=== PATIENT | female | born 1995 ===

== ENCOUNTER 2017-07-09 09:18 | Inpatient (IN) | payer MEDICAID, SELFPAY ==
[2017-07-09] MEDS ORDERED: Lactated Ringer's 1,000 ML IV SCH (10:00)
[2017-07-09 10:40] LABS: BASO % 0.4 % (0.0-2.0); EOS # 0.1 K/uL (0.0-0.7); EOS % 1.1 % (0.0-4.0); HEMATOCRIT 35.4 % (34.0-47.0); LYMPH # 1.5 K/uL (1.0-4.3); LYMPH % 20.2 % (20.0-40.0); MEAN CELL VOLUME 91.2 fL (81.0-99.0); MEAN CORPUSCULAR HEMOGLOBIN 31.3 pg (27.0-31.0); MEAN CORPUSCULAR HGB CONC 34.3 g/dL (33.0-37.0); MEAN PLATELET VOLUME 8.7 fL (7.2-11.7); MONO # 0.5 K/uL (0.0-0.8); MONO % 7.6 % (0.0-10.0); NRBC % 0.1 % (0.0-2.0); RED CELL DISTRIBUTION WIDTH 13.7 % (11.5-14.5); WHITE BLOOD COUNT 7.3 K/uL (4.8-10.8)
[2017-07-09 10:50] LABS: RBC URINE 18 /hpf (0-3); URINE BACTERIA RARE (<OCC); URINE BILIRUBIN NEGATIVE (NEGATIVE); URINE BLOOD 3+ (NEGATIVE); URINE COLOR Yellow (YELLOW); URINE GLUCOSE (UA) NORMAL (Normal); URINE KETONE NEGATIVE (NEGATIVE); URINE LEUKOCYTE ESTERASE 3+ Leu/uL (Negative); URINE PROTEIN NEGATIVE (NEGATIVE); URINE UROBILINOGEN NORMAL mg/dL (0.2-1.0); WBC URINE 36 /hpf (0-5)
--- NOTE | 2017-07-09 10:54 | OBADHP ---
Datetime: 07/09/2017 10:49 Admit Comment, IP Provider: 22 y/o @ 40.2 wks GA c/o of vaignal spotting tis morning with ctx p ain this morning eery 5 min 04/18. pt denie any lof, +FM. 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 PMY: deies PSH: deies FHX: non contriubory MEDS: PNV SHX: negative x 3 A/P 22 y/o @ 40.2 wks GA post edc , in active labor -admit to l+D -pain manamgnet prn -cont toco and efm -cont current mangment -npo, ivf -admission labs Pelvic Type - PN: Adequate Extremities - PN: Normal Abdomen - PN: Normal Back - PN: Normal Breast - PN: Normal Lungs - PN: Normal Heart - PN: Normal Thyroid - PN: Not Done Neurologic - PN: Normal HEENT - PN: Normal General - PN: Normal Weight - Estimated: 3500 Presentation-Admit: Vertex FHR - Baseline A Provider: 130 Membranes, Provider: Intact Contraction Comments Provider: q 3 min Gestation - Est Wks by US: 40.2 IP Chief Complaint: Uterine contractions NICHD Variability Prov Fetus A: Moderate 6-25bpm NICHD Accel Fetus A IP Provider: 15X15 FHR Category Provider Fetus A: Category I NICHD Decel Fetus A IP Provider: None Dilatation, Provider: 4 Effacement, Provider: 60 Station, Provider: -2 Genitourinary Exam: Normal DTRs - PN: Normal EGA AdmitDate IP: 40.2 IP Adm Impression: Term, intrauterine IP Admit Plan: Admit to unit
[2017-07-09 10:56] LABS: CHLORIDE 108 mmol/L (98-107); SODIUM 138 mmol/L (132-148)
[2017-07-09 10:57] LABS: POTASSIUM 3.9 mmol/L (3.6-5.2)
[2017-07-09 10:59] LABS: ALKALINE PHOSPHATASE 170 U/L (38-126); ALT/SGPT 24 U/L (9-52); AST/SGOT 18 U/L (14-36); BILIRUBIN,TOTAL 0.8 mg/dL (0.2-1.3); BLOOD UREA NITROGEN 7 mg/dL (7-17); CARBON DIOXIDE 19 mmol/L (22-30); GFR AFRICAN-AMERICAN > 60; TOTAL PROTEIN 6.5 g/dL (6.3-8.3)
[2017-07-09 11:00] LABS: CALCIUM 9.2 mg/dl (8.6-10.4); GLUCOSE,RANDOM 78 mg/dL (65-105)
--- NOTE | 2017-07-09 12:14 | OBPN ---
Datetime: 07/09/2017 12:00 IP Progress Impression: Normal progression of labor IP Informed Consent Obtain: Vaginal Delivery IP Progress Plan: Continue present management Membranes, Provider: Intact Contraction Comments Provider: 5-7 min FHR - Baseline A Provider: 135 Gestation - Est Wks by US: 40.2 IP Progress Note Comment: Pt seen and examiend for progression of labor. pt reports pian form ctx , denies lof, vb, +FM VSS VE: /-2 vtx itnact A/P @ 40.2 wks GA in active labor for augmenttion -pitoicn as per protocol -ocnt toco and efm NICHD Accel Fetus A IP Provider: 15X15 FHR Category Provider Fetus A: Category I NICHD Variability Prov Fetus A: Moderate 6-25bpm Dilatation, Provider: 4 Effacement, Provider: 70 Station, Provider: -2 NICHD Decel Fetus A IP Provider: None Datetime: 07/09/2017 10:49 Weight - Estimated: 3500 Presentation-Admit: Vertex
[2017-07-09] MEDS ORDERED: Oxytocin 30 UNIT 30 UNITS/500 ML BAG IV SCH ×3 (12:15→21:45)
[2017-07-09] MEDS ORDERED: Bupivacaine 0.125%/FentaNYL 200 ML EPI ONE (14:56)
--- NOTE | 2017-07-09 15:58 | OBPN ---
Datetime: 07/09/2017 15:54 IP Progress Impression: Normal progression of labor IP Informed Consent Obtain: Vaginal Delivery IP Procedures: Artificial ROM IP Progress Plan: Continue present management Membranes, Provider: Ruptured Amniotic Fluid Color, Provider: Bloody FHR - Baseline A Provider: 135 Gestation - Est Wks by US: 40.2 Presentation-Admit: Vertex IP Progress Note Comment: pt seen and examined f/o pain s/p epdurial. pt denies lof, vb, +FM VSS EF: cat I TOCO: q 2 min Pitocin 3mu/min A/P @ 40.2 wks GA , post edc, active labor -s/p AROM -continue pitoicn as per protcol -cont current management Vital Signs Provider: Reviewed; Within Normal Limits NICHD Accel Fetus A IP Provider: 15X15 FHR Category Provider Fetus A: Category I NICHD Variability Prov Fetus A: Moderate 6-25bpm Dilatation, Provider: 5 Effacement, Provider: 70 Station, Provider: -2 NICHD Decel Fetus A IP Provider: None
--- NOTE | 2017-07-09 19:54 | OBPN ---
Datetime: 07/09/2017 19:46 IP Progress Impression: Normal progression of labor IP Progress Plan: Continue present management Membranes, Provider: Ruptured Gestation - Est Wks by US: 40.2 IP Progress Note Comment: pt seen and examiend wth temperature 101. pt reports pressure. VS see above EFM: Cat I TPCOL q 2 min A/P @ 40.2 wks GA in active labor with chorioamenitos -amp/ gent -cont curren tmanagnet -tyeonol -reechck 1 hour, sooner if indicated, strat pushign if fully dilated Vital Signs Provider: Reviewed Vital Signs Provider Details: Temp 101.2 Dilatation, Provider: 9 Effacement, Provider: 90 Station, Provider: 0
[2017-07-09] MEDS ORDERED: Gentamicin 80 mg/2mL Inj. ONE (20:01)
[2017-07-09] MEDS ORDERED: Oxycodone/Acetaminophen 5/325 mg Tab PO PRN ×2 (21:37)
--- NOTE | 2017-07-09 21:40 | OBPN ---
Datetime: 07/09/2017 21:35 IP Progress Impression: Normal progression of labor IP Informed Consent Obtain: Vaginal Delivery IP Procedures: Artificial ROM IP Progress Plan: Continue present management IP Progress Note Comment: pt seen and examien dc/o pressure, denies vb, +FM VE: 10/100/0 A/P @ 40.2 wks GA fully dilated -strt pushing -anticipate
--- NOTE | 2017-07-09 22:56 | OBDS ---
MATERNAL INFORMATION Provider Comments: pt wwas fully dilatd, atrumatic, spontaneous delivery of head, no nuchal cord not ed. ataumatic, spontaneous delivery of nateiror followed by posterir soulder followed by dleivye rof body. both oral and nasal passages of the baby were bulb suctioned. umbilical cord was clamped and cu t. Baby was handed to mother on abdomen with rn assistance. cord blood and cord gases collected and sent x 2. spontaneous delivery of intact placenta with membranes. fundus firm, lower uteirne segment boggy. bimanual massage. methergine IM x 1. loewr uteirne segment firm. second degree perineal lacea tioned noted and repaired with 2-0 and 3-0 chromic. good hemostasis. no complications. ebl 400 apgs 9,9 weight of 7lbs 13 ounces communications attendant presnet for delivery LABOR SUMMARY EDC: 07/07/2017 00:00 No. Babies in Womb: 1 Attempted: No Labor Anesthesia: Epidural LABOR INFORMATION Group B Beta Strep: Negative Steroids Given: None MEMBRANES Membranes Rupture Method: Artificial Rupture of Membranes: 07/09/2017 15:52 Length of Rupture (hrs): 6.08 Amniotic Fluid Color: Bloody Amniotic Fluid Amount: Moderate Amniotic Fluid Odor: Normal STAGES OF LABOR Stage 3 hrs: 0 Stage 3 min: 5 CSECTION DELIVERY CSection Incidence: N/A BABY A INFORMATION Delivery Date/Time: 07/09/2017 21:57 Method of Delivery: Vaginal Born in Route : No : N/A Forceps: N/A Vacuum Extraction: N/A Shoulder Dystocia : No SHOULDER DYSTOCIA BABY A Infant Delivery Date/Time: 07/09/2017 21:57 PRESENTATION/POSITION BABY A Presentation: Cephalic Cephalic Presentation: Vertex Vertex Position: Left Occipital Posterior Breech Presentation: N/A PLACENTA INFORMATION BABY A Placenta Delivery Time : 07/09/2017 22:02 Placenta Method of Delivery: Spontaneous Placenta Status: Delivered SCORES BABY A Heart Rate 1 min: >100 bpm Resp Effort 1 min: Good Cry Reflex Irritability 1 min: Cough or Sneeze or Pulls Away Muscle Tone 1 min: Active Motion Color 1 min: Body [place], Extremities Blue SCORE 1 MIN: 9 Heart Rate 5 min: >100 bpm Resp Effort 5 min: Good Cry Reflex Irritability 5 min: Cough or Sneeze or Pulls Away Muscle Tone 5 min: Active Motion Color 5 min: Body [place], Extremities Blue SCORE 5 MIN: 9 INFORMATION BABY A Gestational Age at Delivery: 40.2 Gestational Status: Term Infant Outcome : Liveborn Infant Condition : Stable Sex: Female IDENTIFICATION/MEDS BABY A ID Band Number: [id number] ID Band Location: Left Leg; Left Arm Sensor Applied: Yes Sensor Number: [id number] Sensor Location : Cord Clamp WEIGHT/LENGTH BABY A Infant Birthweight (gms): 3540 Weight (lb): 7 Infant Weight (oz): 13 Infant Length Inches: 20.00 Length cms: 50.8 CORD INFORMATION BABY A No. Cord Vessels: 3 Nuchal Cord : N/A Infant Suction: Mouth; Nose ASSESSMENT BABY A Complications: None Physical Findings at Delivery: Within Normal Limits Respirations: Appears Normal Care By: DR BUI Transferred To: [facility]
[2017-07-10 07:25] LABS: HEMATOCRIT 30.5 % (34.0-47.0); MEAN CELL VOLUME 91.4 fL (81.0-99.0); MEAN CORPUSCULAR HEMOGLOBIN 31.4 pg (27.0-31.0); MEAN CORPUSCULAR HGB CONC 34.4 g/dL (33.0-37.0); MEAN PLATELET VOLUME 8.8 fL (7.2-11.7); RED CELL DISTRIBUTION WIDTH 14.2 % (11.5-14.5)
[2017-07-10 07:29] LABS: WHITE BLOOD COUNT 14.3 K/uL (4.8-10.8)
--- NOTE | 2017-07-11 00:20 | OBPPN ---
Datetime: 07/10/2017 10:02 PP Pain Prov: Within normal limits PP Nausea Prov: Denies PP Flatus Prov: Yes PP BM Prov: No PP Breasts Prov: Normal PP Heart Prov: Normal PP Lungs Prov: Normal PP Abdomen/Uterus Prov: Normal PP Lochia Prov: Normal PP Vulva/Perineum Prov: Normal PP CVA Tenderness Prov: Normal PP Extremities Prov: Normal PP C/S Incision Prov: Not Applicable PP Progress Prov: Normal PP Comments Phys Exam Prov: Abdomen: Soft. (+) BS. Fundus firm, mobile, non tender, 1 FB below umbi licus. Mild lochia rubra All other systems reviewed and are negative PP Impression Prov: Normal progression PP Plan Prov: Continue present management PP Progress Note Prov: Patient received in room 453. Denies headaches, dizziness; excl usively. Ambulating and voiding without difficulty P.E.: as above. WD in NAD. Awake, alert, oriented to time, person and place. Pleasant and cooerat betty - PPD#1 H/H 10.5/30.5; Rh (+) Assessment: PPD#1, 22 y.o. P1, s/P ; currently on Amp/gent for chorioamnionitis. Currently afe brile; all other vital signs stable. Clinically stable. Plan: 1) continue present management 2) Anticipate discharge home 07/11/17 Vital Signs Provider PP: Reviewed
[2017-07-11 01:01] VITALS: O2SAT 98
[2017-07-11 08:13] VITALS: BP 100/67; PULSE 87; RESP 18; TEMP 98.1
--- NOTE | 2017-07-11 10:06 | OBPPN ---
Datetime: 07/11/2017 10:03 PP Pain Prov: Within normal limits PP Nausea Prov: Denies PP Flatus Prov: Yes PP BM Prov: Yes PP Breasts Prov: Normal PP Heart Prov: Normal PP Lungs Prov: Normal PP Abdomen/Uterus Prov: Normal PP Lochia Prov: Normal PP Vulva/Perineum Prov: Normal PP CVA Tenderness Prov: Normal PP Extremities Prov: Normal PP C/S Incision Prov: Not Applicable PP Progress Prov: Normal PP Impression Prov: Normal progression PP Plan Prov: Continue present management; Discharge PP Progress Note Prov: Pt seen and examined and reports pain is controlled with medication. Pt repor ts ambuating, voiding, passing flatus, no BM. Pt denies any fever, chills, nausea, vomiting, CP, SOB. lightheadness, dizzyness. Pt is breast and bottle feeding and denies any feelings of sadness or depr ession. Pt tolerating regular diet VSS PE: GEN: NAD, AAO x 3 BREAST: NT, Non engorged b/l RES: CTAB/l CVS: RRR, +S1/S2 ABD: soft, NT/ND, +BS. No guarding, no reboudn tenderness, no rigidity FUNDUS: Firm, below level of umbiliucs VE: Minimal lochia, non fouls smelling EXT: no calf tenderness, negative franko's sign A/P s/p PPD #2 doing wel, requestng discharge -d/ chome -rto 6 weeks Vital Signs Provider PP: Reviewed; Within Normal Limits
--- NOTE | 2017-07-11 10:06 | OBDCSUM ---
Datetime: 07/11/2017 10:04 Discharged to, Provider: Home Follow up at, Provider: clinic Disch Instr Activity: Normal activity Disch Instr Diet: Regular Discharge Instructions, Provider: Routine instructions given Discharge Diagnosis, Provider: Term Delivered Discharge Time: 07/11/2017 10:04 Follow up in weeks, Provider: 6 weeks Disch Referrals: None Contraception discussed, Prov: Yes Disch Activity Restrictions: No sexual activity; Nothing in vagina - Yonah, tampons, douche Discharge Comment, Provider: if fever, chills, nause, vomitig, cp, sob, britton jj, go to er Contraception after Delivery: Not Planning to Use
== END 2017-07-11 15:40 | disposition home or self-care (01) | DRG 373 ==
LOC: C.EROB 09:18 → C.4D 10:02 → C.4M 07-10 01:19
PROVIDERS: ADMIT Obstetrics & Gynecology; ATTEND Obstetrics & Gynecology
PROC: 10907ZC Drainage of Amniotic Fluid, Therapeutic from Products of Conception, Via Natural or Artificial Opening (ICD-10-PCS; principal; 2017-07-09)
PROC: 10E0XZZ Delivery of Products of Conception, External Approach (ICD-10-PCS; 2017-07-09)
PROC: 0KQM0ZZ Repair Perineum Muscle, Open Approach (ICD-10-PCS; 2017-07-09)
DX: O41.1210 Chorioamnionitis, first trimester, not applicable or unspecified (principal); O70.1 Second degree perineal laceration during delivery; Z37.0 Single live birth; Z3A.40 40 weeks gestation of pregnancy

== ENCOUNTER 2017-07-18 14:32 | Emergency (ER) | payer MEDICAID, OTHER ==
[2017-07-18 14:38] VITALS: RESP 16; O2SAT 99
--- NOTE | 2017-07-18 14:43 | C.PDOC ---
History Of Present Illness 07/18/2017 Keli Mcnamara is a 22 year old female, who presents to the emergency department complaining of a rash on her chest, left and right abdomen sides, and groin area since yesterday morning. Patient reports this is the first time this rash occurs and notes last she began to use a new laundry detergent. Patient denies using any new creams, or perfumes. Patient denies any fever, shortness of breath, chest pain, headache or other complaints. Patient also states she is currently breast-feeding her one week old baby. PMD: Dr. Alvarez Time Seen by Provider: 07/18/17 14:41 Chief Complaint (Nursing): Allergic Reaction History Per: Patient History/Exam Limitations: language barrier (telecommunications officer: Whit Grant) Onset/Duration Of Symptoms: Days (1 days) Current Symptoms Are (Timing): Still Present Possible Cause: Other (new detergent ) Associated Symptoms: Skin Rash, Itching Home/EMS Treatment: None Past Medical History Reviewed: Historical Data, Nursing Documentation, Vital Signs Vital Signs: Last Vital Signs Temp 98.2 F 07/18/17 14:35 Pulse 76 07/18/17 14:35 Resp 16 07/18/17 14:35 BP 117/76 07/18/17 14:35 Pulse Ox 99 07/18/17 15:06 - Medical History PMH: Denies: Depression, Diabetes, HTN - [facility] Procedures DELIVERY OF PRODUCTS OF CONCEPTION, EXTERNAL APPROACH (07/09/17) DRAINAGE OF AMNIOTIC FL, THERAP FROM POC, VIA OPENING (07/09/17) REPAIR PERINEUM MUSCLE, OPEN APPROACH (07/09/17) - Social History Hx Alcohol Use: No Hx Substance Use: No - Immunization History Hx Tetanus Toxoid Vaccination: Yes Hx Influenza Vaccination: No Hx Pneumococcal Vaccination: No Review Of Systems Constitutional: Negative for: Fever Cardiovascular: Negative for: Chest Pain Respiratory: Negative for: Shortness of Breath Skin: Positive for: Rash (chest, abdomen, and groin area) Neurological: Negative for: Headache, Dizziness Physical Exam - Physical Exam Appears: Well, Non-toxic, No Acute Distress Skin: Normal Color, Warm, Dry, Rash (maculopapular rash to chest, abdomen, axilla, and groin area) Head: Atraumatic, Normacephalic Eye(s): bilateral: Normal Inspection, PERRL, EOMI Nose: Normal Throat: Normal Neck: Normal Cardiovascular: Rhythm Regular Respiratory: Normal Breath Sounds Gastrointestinal/Abdominal: Normal Exam Back: Normal Inspection Extremity: Normal ROM Neurological/Psych: Oriented x3, Normal Speech, Normal Motor, Normal Sensation Gait: Steady ED Course And Treatment O2 Sat by Pulse Oximetry: 99 (room air) Pulse Ox Interpretation: Normal Medical Decision Making Medical Decision Makin07/18/2017 Impression: 22 year old with maculopapular rash on chest, abdomen, axilla, and groin area Plan: -- Pepcid -- Prednisone -- Reassess and disposition Re-evaluation: Discussed results and plan with patient. Patient understands results and is agreeable with plan. All questions answered. Patient is stable for discharge and was prescribed with Prednisone and Zantac. Disposition - Disposition Referrals: She Dodge, ACNP-BC [Advanced Practice Nurse] - Disposition: HOME/ ROUTINE Disposition Time: 15:02 Additional Instructions: Anders, thank you for letting us take care of you today. Return to the ER if your symptoms worsen, or if any problems. Follow up with Dr. Alvarez in 2 or 3 days for a re-evaluation. Take the medication listed below as prescribed. It is generally considered safe if breast feeding. Prescriptions: Prednisone [Deltasone] 1 tab PO TID #15 tablet Ranitidine HCl [Zantac] 1 tab PO BID #14 tablet Instructions: Urticaria (ED), General Allergic Reaction (ED) Forms: Gen Discharge Inst Azeri Print Language: NAMIBIAN - POA Present On Arrival: None - Clinical Impression Clinical Impression: Allergic reaction - Scribe Statement The provider has reviewed the documentation as recorded by the Scribe 07/18/2017 Scribe Attestation: Whit Grant MD Scribe Attestation: All medical record entries made by the Scribe were at my direction and personally dictated by me. I have reviewed the chart and agree that the record accurately reflects my personal performance of the history, physical exam, medical decision making, and the department course for this patient. I have also personally directed, reviewed, and agree with the discharge instructions and disposition.
[2017-07-18 15:45] VITALS: BP 112/72; PULSE 90; TEMP 98
== END 2017-07-18 15:43 | disposition home or self-care (01) ==
LOC: C.ER 14:32
DX: T78.49XA Other allergy, initial encounter (principal)

== ENCOUNTER 2018-04-10 07:20 | Emergency (ER) | payer OTHER ==
[2018-04-10 07:27] VITALS: BP 111/75; PULSE 63; RESP 16; TEMP 97.3; O2SAT 99
[2018-04-10] MEDS ORDERED: Amoxicillin-Clav 500-125 mg Tab PO STA (08:08)
[2018-04-10] MEDS ORDERED: Amoxicillin-Clav 500-125 mg Tab PO ONE (08:19)
--- NOTE | 2018-04-10 09:01 | C.PDOC ---
History Of Present Illness 22 y/o female presents to the ED complaining of right ear pain for 2 days. Denies any fever, cough, SOB, sore throat, or chills. Of note, patient is currently breast feeding. She denies taking any [id number] medications at home. Time Seen by Provider: 04/10/18 07:36 Chief Complaint (Nursing): ENT Problem History Per: Patient History/Exam Limitations: None Onset/Duration Of Symptoms: Days Current Symptoms Are (Timing): Still Present Past Medical History Reviewed: Historical Data, Nursing Documentation, Vital Signs Vital Signs: Last Vital Signs Temp 97.3 F L 04/10/18 07:23 Pulse 63 04/10/18 07:23 Resp 16 04/10/18 07:23 BP 111/75 04/10/18 07:23 Pulse Ox 99 04/10/18 09:01 - Medical History PMH: Denies: Depression, Diabetes, HTN Surgical History: No Surg Hx - [facility] Procedures DELIVERY OF PRODUCTS OF CONCEPTION, EXTERNAL APPROACH (07/09/17) DRAINAGE OF AMNIOTIC FL, THERAP FROM POC, VIA OPENING (07/09/17) REPAIR PERINEUM MUSCLE, OPEN APPROACH (07/09/17) Family History: States: No Known Family Hx - Social History Hx Alcohol Use: No Hx Substance Use: No - Immunization History Hx Tetanus Toxoid Vaccination: Yes Hx Influenza Vaccination: No Hx Pneumococcal Vaccination: No Review Of Systems Except As Marked, All Systems Reviewed And Found Negative. Constitutional: Negative for: Fever, Chills ENT: Positive for: Ear Pain. Negative for: Throat Pain Cardiovascular: Negative for: Chest Pain Respiratory: Negative for: Cough, Shortness of Breath Physical Exam - Physical Exam Appears: Well, Non-toxic, No Acute Distress Skin: Normal Color, Warm, Dry, No Rash Head: Atraumatic, Normacephalic Eye(s): bilateral: Normal Inspection, PERRL, EOMI Ear(s): Left: Normal, Right: TM Erythema (and bulging, with right-sided pre- auricular tenderness, (-) mastoid tenderness) Nose: Normal Oral Mucosa: Moist Neck: Normal ROM, Trachea Midline, Supple Lymphatic: No Adenopathy Cardiovascular: Rhythm Regular, No Murmur Respiratory: Normal Breath Sounds, No Rales, No Rhonchi, No Wheezing Extremity: Bilateral: Atraumatic, Normal Color And Temperature, Normal ROM Neurological/Psych: Oriented x3, Normal Speech, Other (No focal deficits) ED Course And Treatment O2 Sat by Pulse Oximetry: 99 (RA) Pulse Ox Interpretation: Normal Progress Note: On examination, patient is AAOx3, afebrile, in no acute distress. Patient treated with initial dose of PO Augmentin in the ED. Will d/c home with prescriptions for Augmentin and Tylenol. Patient advised to follow up with PMD and/or ENT specialist in 1-2 days. Disposition Counseled Patient/Family Regarding: Diagnosis, Need For Followup, Rx Given - Disposition Referrals: Johny Horta MD [Staff Provider] - Disposition: HOME/ ROUTINE Disposition Time: 08:59 Condition: STABLE Additional Instructions: Follow up with PMD and ENT specialist within 1-2 days. Return to ED if feel worse. Prescriptions: Amoxicillin/Clavulanate [Augmentin 875 MG-125 MG] 1 tab PO BID #14 tab Acetaminophen [Tylenol 325mg tab] 2 tab PO Q6 #50 tab Instructions: Ear Infections (Otitis Media) Forms: [employer] (Guyanese) - POA Present On Arrival: None - Clinical Impression Clinical Impression: Otitis media - PA / CONDUIT REAMER OPERATOR / Resident Statement MD/DO has reviewed & agrees with the documentation as recorded. - Scribe Statement The provider has reviewed the documentation as recorded by the Scribe (Faith Gaming) All medical record entries made by the Scribe were at my direction and personally dictated by me. I have reviewed the chart and agree that the record accurately reflects my personal performance of the history, physical exam, medical decision making, and the department course for this patient. I have also personally directed, reviewed, and agree with the discharge instructions and disposition.
== END 2018-04-10 09:14 | disposition home or self-care (01) ==
LOC: C.ER 07:20
DX: H66.90 Otitis media, unspecified, unspecified ear (principal)

== ENCOUNTER 2019-02-03 10:31 | Emergency (ER) | payer OTHER ==
[2019-02-03 10:42] VITALS: TEMP 98.2
--- NOTE | 2019-02-03 10:42 | C.PDOC ---
History Of Present Illness 23 year old female presents to ED with complaint of body aches, chest pain,and back pain for 1 day. Patient also complains of chills, nausea, vomiting, and headache. Patient reports 3 episodes of vomiting. Patient is currently on her period. Patient describes the pain to her back as sharp. She states that it feels like she is gasping for air. She also states that she has been experiencing epigastric discomfort. She denies cough, runny nose, sore throat, fever, and dysuria. Time Seen by Provider: 02/03/19 10:39 Chief Complaint (Nursing): Abdominal Pain History Per: Patient History/Exam Limitations: no limitations Onset/Duration Of Symptoms: Days (1) Current Symptoms Are (Timing): Still Present Location Of Pain/Discomfort: Epigastric Radiation Of Pain To:: None Quality Of Discomfort: Sharp Associated Symptoms: Chills, Nausea, Vomiting, Back Pain, Chest Pain. denies: Fever, Diarrhea, Urinary Symptoms (dysuria) Exacerbating Factors: None Alleviating Factors: None Past Medical History Reviewed: Historical Data, Nursing Documentation, Vital Signs - Medical History PMH: No Chronic Diseases Denies: Depression, Diabetes, HTN Surgical History: No Surg Hx - [facility] Procedures DELIVERY OF PRODUCTS OF CONCEPTION, EXTERNAL APPROACH (07/09/17) DRAINAGE OF AMNIOTIC FL, THERAP FROM POC, VIA OPENING (07/09/17) REPAIR PERINEUM MUSCLE, OPEN APPROACH (07/09/17) Family History: States: Unknown Family Hx - Social History Hx Alcohol Use: No Hx Substance Use: No - Immunization History Hx Tetanus Toxoid Vaccination: Yes Hx Influenza Vaccination: No Hx Pneumococcal Vaccination: No Review Of Systems Constitutional: Positive for: Chills, Malaise. Negative for: Fever, Weakness ENT: Negative for: Nose Discharge Cardiovascular: Positive for: Chest Pain Respiratory: Negative for: Cough Gastrointestinal: Positive for: Nausea, Vomiting, Abdominal Pain (epigastric area) Genitourinary: Negative for: Dysuria Musculoskeletal: Positive for: Back Pain Neurological: Negative for: Weakness, Numbness, Dizziness Physical Exam - Physical Exam Appears: Non-toxic, No Acute Distress Skin: Normal Color, Warm, Dry Head: Atraumatic, Normacephalic Eye(s): bilateral: PERRL, EOMI Oral Mucosa: Moist Neck: Normal ROM, Supple Chest: Symmetrical, No Deformity, Tenderness (reproducible pain on palpation to the anterior chest wall) Cardiovascular: Rhythm Regular, No Murmur Respiratory: No Accessory Muscle Use, No Rales, No Rhonchi, No Wheezing Gastrointestinal/Abdominal: Soft, No Tenderness Back: Muscle Spasm (reproducible pain on palpation) Neurological/Psych: Oriented x3, Normal Speech, Normal Cognition ED Course And Treatment - Laboratory Results Result Diagrams: 02/03/19 11:26 02/03/19 11:26 Medical Decision Making Medical Decision Making: Impression: 23 year old female presents to ED with complaint of body aches, chest pain,and back pain for 1 day. Plan: Labs ordered with flu a/b, UA, and CBC. Patient given Pepcid IVP, IV fluids, and Zofran IVP Disposition Counseled Patient/Family Regarding: Studies Performed - Disposition Referrals: [facility] [Outside] Disposition: HOME/ ROUTINE Disposition Time: 13:49 Prescriptions: Famotidine [Pepcid] 40 mg PO HS #30 tab Instructions: Gastritis (DC) Forms: Gen Discharge Inst Australian, [employer] (Australian) - POA Present On Arrival: None - Clinical Impression Clinical Impression: Gastritis - Scribe Statement The provider has reviewed the documentation as recorded by the Scribe (Nisha Sykes) All medical record entries made by the Scribe were at my direction and personally dictated by me. I have reviewed the chart and agree that the record accurately reflects my personal performance of the history, physical exam, medical decision making, and the department course for this patient. I have also personally directed, reviewed, and agree with the discharge instructions and disposition.
[2019-02-03] MEDS ORDERED: Sodium Chloride 0.9% 1,000 ML IV ONE (10:55)
[2019-02-03 11:31] LABS: BASO % 0.3 % (0.0-2.0); EOS % 0.7 % (0.0-4.0); LYMPH # 0.6 K/uL (1.0-4.3); LYMPH % 11.9 % (20.0-40.0); MEAN CORPUSCULAR HEMOGLOBIN 31.1 pg (27.0-31.0); MEAN CORPUSCULAR HGB CONC 34.8 g/dL (33.0-37.0); MEAN PLATELET VOLUME 8.1 fL (7.2-11.7); MONO # 0.4 K/uL (0.0-0.8); MONO % 7.8 % (0.0-10.0); NEUT # 4.1 K/uL (1.8-7.0); NEUT % 79.3 % (50.0-75.0); RBC 4.4 Mil/uL (3.80-5.20); RED CELL DISTRIBUTION WIDTH 13.1 % (11.5-14.5)
[2019-02-03 11:43] LABS: WHITE BLOOD COUNT 5.2 K/uL (4.8-10.8)
[2019-02-03 11:44] LABS: HEMOGLOBIN 13.7 g/dL (11.0-16.0); MEAN CELL VOLUME 89.3 fL (81.0-99.0)
[2019-02-03 11:48] LABS: ALB/GLOB RATIO 1.5 (1.0-2.1); ALBUMIN 4.3 g/dL (3.5-5.0); ALT/SGPT 34 U/L (9-52); AST/SGOT 29 U/L (14-36); BLOOD UREA NITROGEN 11 mg/dL (7-17); CALCIUM 8.7 mg/dl (8.6-10.4); GFR NON-AFRICAN AMERICAN > 60
[2019-02-03 12:01] LABS: HCG,QUALITATIVE URINE NEGATIVE (NEGATIVE)
[2019-02-03 12:17] LABS: SQUAMOUS EPITHIAL 3 /hpf (0-5); URINE AMORPHOUS SEDIMENT RARE /ul (<OCC); URINE BACTERIA RARE (<OCC); URINE BILIRUBIN NEGATIVE (NEGATIVE); URINE BLOOD 2+ (NEGATIVE); URINE CLARITY Hazy (Clear); URINE COLOR Amber (YELLOW); URINE GLUCOSE (UA) NORMAL (Normal); URINE LEUKOCYTE ESTERASE NEG Leu/uL (Negative); URINE PROTEIN 1+ mg/dL (NEGATIVE)
[2019-02-03 12:39] VITALS: BP 124/70; PULSE 77; RESP 18; O2SAT 98
== END 2019-02-03 14:14 | disposition home or self-care (01) ==
LOC: C.ER 10:31
DX: K29.70 Gastritis, unspecified, without bleeding (principal)
CPT/HCPCS: 80053; 81001; 84703; 85025; 87804; 96361; 96374; 96375; 99285; J2405; J7030